=== PATIENT | female | born 1970 | race Caucasian/White ===

== ENCOUNTER 2021-11-28 15:47 | Outpatient (CLI) | payer BC | END 2021-11-28 15:48 | disposition home or self-care (01) | LOC: BICMAMMO 15:47 | PROVIDERS: ATTEND Family Medicine | DX: Z12.31 Encounter for screening mammogram for malignant neoplasm of breast (principal) | CPT/HCPCS: 77063; 77067 ==

== ENCOUNTER 2022-03-12 14:27 | Outpatient (CLI) | payer BC | END 2022-03-12 14:28 | disposition home or self-care (01) | LOC: SCSMRI 14:27 | PROVIDERS: ATTEND Psychiatry & Neurology Neurology | DX: G43.701 Chronic migraine without aura, not intractable, with status migrainosus (principal) | CPT/HCPCS: 70553 ==

== ENCOUNTER 2022-12-09 06:44 | Day surgery (SDC) | payer BC ==
[2022-12-07 14:34] VITALS: BMI 23.3
[2022-12-09] MEDS ORDERED: PROPOFOL 200 MG/20 ML VIAL ONE (08:43)
== END 2022-12-09 13:15 | disposition home or self-care (01) ==
LOC: SDC 06:44
PROVIDERS: ATTEND Internal Medicine Gastroenterology
PROC: XW0H7X8 Introduction of Broad Consortium Microbiota-based Live Biotherapeutic Suspension into Lower GI, Via Natural or Artificial Opening, New Technology Group 8 (ICD-10-PCS; principal; 2022-12-09)
DX: A04.71 Enterocolitis due to Clostridium difficile, recurrent (principal); K57.30 Diverticulosis of large intestine without perforation or abscess without bleeding; E03.9 Hypothyroidism, unspecified; F41.8 Other specified anxiety disorders; Z88.2 Allergy status to sulfonamides; Z88.1 Allergy status to other antibiotic agents; Z88.6 Allergy status to analgesic agent; Z90.710 Acquired absence of both cervix and uterus; Z79.899 Other long term (current) drug therapy
CPT/HCPCS: J2704

== ENCOUNTER 2023-02-01 08:00 | Outpatient (CLI) | payer BC | END 2023-02-01 08:01 | disposition home or self-care (01) | LOC: BICMAMMO 08:00 | PROVIDERS: ATTEND Family Medicine | DX: Z12.31 Encounter for screening mammogram for malignant neoplasm of breast (principal) | CPT/HCPCS: 77063; 77067 ==